=== PATIENT | male | born 1950 | race Caucasian/White ===

== ENCOUNTER 2017-10-04 03:54 | Inpatient (IN) | payer MEDICARE ==
[~2017-10-04] VITALS: Ht 180.3 cm; Wt 220.6 kg
--- OUTSIDE RECORDS SUMMARY | ~2017-10-04 | XMS | Clinical Summary ---
Demographics + + + | Address | [address] | | | [place] [address] | + + + | Home Phone | | + + + | Preferred Language | Unknown | + + + | Marital Status | | + + + | Yazidism Affiliation | ADV | + + + | Race | White | + + + | Ethnic Group | Not or | + + + Author + + + | Author | [facility] | + + + | Organization | [facility] | + + + | Address | Unknown | + + + | Phone | Unavailable | + + + Support +------+ +---------+ + | Name | Relationship | Address | Phone | +------+ +---------+ + ECON | Unknown | | +------+ +---------+ + Care Team Providers + +------+ + | Care Complaint Manager Name | Role | Phone | + +------+ + PP | Unavailable | + +------+ + Source Comments HERO is fully live on both [facility] Ambulatory and [facility] InPatient.[facility] Allergies No Known Allergies Current Medications Not [...]
--- OUTSIDE RECORDS SUMMARY | 2017-10-04 03:57 | XMS | Clinical Summary ---
Demographics + + + | Address | [address] | | | [place] [address] | + + + | Home Phone | | + + + | Preferred Language | Unknown | + + + | Marital Status | | + + + | Oriental Orthodox Affiliation | ADV | + + + | Race | White | + + + | Ethnic Group | Not or | + + + Author + + + | Author | [facility] | + + + | Organization | [facility] | + + + | Address | Unknown | + + + | Phone | Unavailable | + + + Support +------+ +---------+ + | Name | Relationship | Address | Phone | +------+ +---------+ + ECON | Unknown | | +------+ +---------+ + Care Team Providers + +------+ + | Care Scientific Research Associate Name | Role | Phone | + +------+ + PP | Unavailable | + +------+ + Source Comments HERO is fully live on both [facility] and [facility] InPatient.[facility] Allergies No Known Allergies Current Medications Not on file Active Problems Not on file Social History + +-------+ +--------+------+ | Tobacco Use | Types | Packs/Day | Years | Date | | | | | Used | | + +-------+ +--------+------+ | Never Assessed | | | | | + +-------+ +--------+------+ + + + | Sex Assigned at | Date Recorded | | | | + + + | Not on file | | + + + Plan of Treatment + + + + + | Health Maintenance | Due Date | Last Done | Comments | + + + + + | INFLUENZA VACCINE | | | | | (FLU SHOT) | 7 | | | + + + + + Results Not on filefrom Last 3 Months"
--- OUTSIDE RECORDS SUMMARY | 2017-10-04 03:57 | XMS | Clinical Summary ---
Demographics + + + | Address | [address] | | | [place] [address] | + + + | Home Phone | | + + + | Preferred Language | Unknown | + + + | Marital Status | | + + + | Quaker Affiliation | ADV | + + + | Race | White | + + + | Ethnic Group | Not or | + + + Author + + + | Author | [facility] | + + + | Organization | [facility] | + + + | Address | Unknown | + + + | Phone | Unavailable | + + + Support +------+ +---------+ + | Name | Relationship | Address | Phone | +------+ +---------+ + ECON | Unknown | | +------+ +---------+ + Care Team Providers + +------+ + | Care Manager Administration Name | Role | Phone | + +------+ + PP | Unavailable | + +------+ + Source Comments HERO is fully live on both [facility] Amb[facility] and [facility] InPatient.[facility] Allergies No Known Allergies Current Medications Not [...]
--- NOTE | 2017-10-04 06:55 | NUR ---
HANDOFF REPORT RECEIVED FROM GAS LEAK INSPECTOR CHARGE NURSE. PT ARRIVED TO FLOOR, IV FLUIDS INFUSING. PT REQUESTING TO STAY SITTING IN CHAIR.
--- NOTE | 2017-10-04 08:20 | NUR ---
ADMISSION INTAKE COMPLETED. PT ON ROOM AIR, DENIES SOB, WEARS BIPAP FOR SLEEP AT HOME, DSICUSSED WITH PT. PT DENIES NAUSEA. PT RATING PAIN 1/10 TO ABD. IV FLUIDS INFUSING NS BOLUS FOR ED, IV ABX COMPLETED. PT LUNG SOUNDS CLEAR. BOWEL TONES ACTIVE. PT WITH 1+ EDEMA TO BLE, CMS INTACT. PT NPO FOR PROCEDURE. DISCUSSED PLAN OF CARW WITH PT. PT DENIES QUESTIONS AT THIS TIME.
--- NOTE | 2017-10-04 10:00 | NUR ---
PT HAS HAD FULL BODY SURGICAL WIPE DOWN AND IS NOW JUST WAITING TO BE TAKEN TO SURGERY. PT DID NOT NEED ANYTHING ELSE AT THE MOMENT.
--- NOTE | 2017-10-04 10:25 | NUR ---
PT TO OR WITH DAYSURGERY RN. LR BOLUS INFUSING.
--- NOTE | 2017-10-04 14:30 | NUR ---
PT IS STILL IN SURGERY.
--- NOTE | 2017-10-04 16:25 | NUR ---
10/04/17 1625 Latoya Villatoro 1539-PATIENT ARRIVED TO PACU ON 12L MASK AWAKE YELLING I NEED TO PEE, I NEED TO GET UP. ARMS RIGID HAVING TO HOLD DOWN ARMS. WANTING TO GET OUT OF BED. DR. LEDEZMA AT BEDSIDE. RT CALLED TO BEDSIDE FOR CPAP/BIPAP PLACEMENT. ST. O2 SAT 82% AFTER CPAP PLACED 02 INCREASED TO 99-100% ORDER TO GIVE 3O MG TORADOL IVP. INCISION CDI 1548-SHAH CATHETER REMOVED BY MYESHA LAMAR MD ORDERED TO HAVE REMOVED. 50 ML'S URINE IN SHAH. 1600-PATIENT SQUEEZED RAHEEM DRAIN AND SEROUSANGUINOUS DRAINAGE ONTO BED AND EMPTIED 30 MLS. GOWN CHANGED AND PATIENT ORIENTED TO SITUATION. PATIENT MEDICATED WITH MORPHINE IVP. BREATHING TREATMENT BY RT 1611-IV TYLENOL BEING ADMINISTERED IV. 1622-RT REMAINS AT BEDSIDE TODD SAGASTUME AT BEDSIDE PATIENT REPOSITIONED WITH HOB ELEVATED HOVER MAT. PATIENT ON CPAP. URINAL TO PENIS. PATIENT REPORTS PAIN 03/29 1
--- NOTE | 2017-10-04 17:14 | NUR ---
PT HAS JUST RETURNED FROM SURGERY, PT IS RESTING SAFELY IN THE BED WITH CALL LIGHT IN REACH. FIRST SET OF POST OP VITALS TAKEN.
--- NOTE | 2017-10-04 17:23 | NUR ---
PT RECEIVED FROM PACU, BEDSIDE REPORT OBTAINED FROM NATURAL DEVELOPER. PT ON BIPAP, MEDIA MARKETING DIRECTOR AT BEDSIDE, PT LUNG SOUNDS CLEAR, TOLERATING BIPAP WELL, UNLABORED AND EVEN BREATHING. PT DENIES NAUSEA. PT DENIES PAIN, STATES "I'VE HAD MORPHINE, I AM COMFORTABLE." PT WITH INCISION TO RIGHT LOWER ABS, DRESSING INTACT, WITHOUT DRAINAGE, RAHEEM DRAIN WITH SEROSANGUINOUS FLUID. PT WITH 2+EDEMA TO BLE, CMS INTACT. IV FLUIDS INFUSING. PT DENIES OTHER NEEDS AT THIS TIME, DISCUSSED PLAN OF CARE AND EDUCATED ON BRACING FOR DEEP BREATHING AND COUGHING.
--- NOTE | 2017-10-04 17:43 | NUR ---
PT WITHOUT S/S OF RESPIRATORY DISTRESS, TOLERATING CPAP WELL, DISCUSSED WITH RT WEANING TO NASAL CANNULA, RT AGREES ATTEMPT. DISCUSSED WITH PT, AGREES TO TRY NASAL CANNULA, PLACED ON 4L NC, RR 18, UNLABORED. 02 SATS 93% ON 4L, BP 159/67, PULSE 98. PT PROVIDED WITH SMALL SIPS OF WATER. RAHEEM DRAIN EMPTIED FOR 25 ML. PT ATTEMPTED TO VOID, DIFFICULTY URINATED, ABLE TO VOID SMALL AMOUNT, MISSED URINAL.
--- NOTE | 2017-10-04 18:02 | NUR ---
PT IS RESTING IN BED SAFELY WITH CALL LIGHT IN REACH. PT'S SECOND SET OF POST OP VITLAS WERE DONE AND CHARTED BY NURSE GREER, WELL I&O'S. PT DID NOT NEED ANYTHING AT THE MOMENT
--- NOTE | 2017-10-04 18:29 | NUR ---
PT HAD OPEN APPENDECTOMY. PT ON BIPAP UPON ARRIVE, WEANED TO 4L NC, CONTINOUS PULSE OX. PT TOELRATING SIPS OF WATER, CLEAR LIQUID DIET, BOWEL TONES ACTIVE, DENIES NAUSEA. PT HAS NOT REQUIRED PAIN MEDICATION SINCE ARRIVE TO FLOOR, RECEIVED 6MG IV MORPHINE IN PACU. PT WITH RLQ DRESSING CDI, RAHEEM DRAIN WITH SEROSANGUINOUS FLUID. PT HAS VOIDED A SMALL AMOUNT OF URINE, UNABLE TO MEASURE. SCDS IN PLACE. IV FLUIDS D5LR AT 85 ML/HR.
--- NOTE | 2017-10-04 19:00 | NUR ---
BEDSIDE REPORT RECEIVED FROM WILLARD GREER. PT LYING IN BED, DROWSY, AWAKENS WITH RNS ENTERING ROOM. CPAP ON. SPO2 91%, HR 93. DRESSING CDI, RAHEEM DRAIN HAS SMALL AMOUNT SANGUINOUS DRAINAGE. IVF INFUSING WNL. CALL LIGHT IN REACH, PT HAS NO REQUESTS AT THIS TIME.
--- NOTE | 2017-10-04 20:35 | NUR ---
PT ASSESSMENT COMPLETE AT THIS TIME, PT ON 3.5 L OXYGEN BY RT ANANDA SALAZAR IN ROOM TO SWITCH PT FROM CPAP, SPO2 90%. PT GIVEN INCENTIVE SPIROMETER BY RN,INSTRUCTED ON USE, 1250 BEST EFFORT WITH 10 REPS. LUNGS CLEAR, DIMINISHED THROUGHOUT ALL LOBES, BOWEL TONES HYPOACTIVE. PT STATES PAIN IS 3/10 AT INCISION SITE, TOLERABLE. NO SIGNIFICANT EDEMA NOTED, CSM INTACT BILATERALLY UPPER AND LOWER EXTREMITIES. SCDS ON. RAHEEM DRAIN SANGUINOUS SMALL AMT, INCISION SITE CLEAN DRY AND INTACT WITH GAUZE. PT HAS CALL LIGHT, IVF INFUSING WNL RIGHT AC, FLUSHES WELL.
--- NOTE | 2017-10-04 22:49 | NUR ---
HELPED PT TO USE HIS URINAL. BEDSIDE TABLE AND CALL LIGHT IN REACH. HE NEEDS NOTHING ELSE AT THIS TIME.
--- NOTE | 2017-10-05 00:22 | NUR ---
PT SLEEPING AT THIS TIME, CPAP ON. VISIBLE CHEST RISE. LIGHTS OFF IN ROOM.
--- NOTE | 2017-10-05 03:29 | NUR ---
ASSISSTED PT TO DANGLE AT SIDE OF BED WITH 3PA. MORNING ASSESSMENT COMPLETE, LUNGS CLEAR THROUGHOUT ALL LOBES. INCISION SITE CLEAN DRY AND INTACT. RAHEEM DRAIN CONTINUES TO DRAIN SMALL AMOUNTS OF SANGUINOUS FLUID. PT HAS SCDS ON, IVF INFUSING. CPAP ON AT THIS TIME. CALL LIGHT IN REACH.
--- NOTE | 2017-10-05 04:22 | NUR ---
RT IN PT ROOM ASSISTING WITH CPAP MACHINE.
--- NOTE | 2017-10-05 06:26 | NUR ---
EMPTIED RAHEEM DRAIN, 30 ML SEROSANGUINOUS DRAINAGE. PT SLEEPING, CPAP ON, SCDS ON, AWAKENS TO RN ENTERING ROOM. REQUESTED TEMPERTATURE TURNED UP. IVF INFUSING AT 85 ML/HR. NO ADDITIONAL REQUESTS AT THIS TIME. CALL LIGHT IN REACH.
--- NOTE | 2017-10-05 06:29 | NUR ---
PT WAS ABLE TO DANGLE AT SIDE OF BED THIS SHIFT WITH 3PA, PT GUARDED WITH ABD INCISION. PT REFUSES PAIN MEDICATION THROUGHOUT SHIFT. RAHEEM DRAIN DRAINING SEROSANGUINOUS FLUIDS, EMPTIED X 2 FOR 70 ML TOTAL FLUID. PT HAS HAD SUFFICIENT URINE OUTPUT THIS SHIFT. USING INCENTIVE SPIROMETER APPROPRIATELY. DRESSING CLEAN DRY AND INTACT THROUGHOUT SHIFT. CONTINUES TO RECEIVE IVF WNL.
--- NOTE | 2017-10-05 07:00 | NUR ---
BEDSIDE HANDOFF REPORT RECEIVED FROM MATERIAL CONTROL SUPERVISOR RN. PT SLEEPING, CPAP ON. IV FLUIDS INFUSING D5LR AT 85 ML/HR. PT LEFT UNDISTURBED.
--- NOTE | 2017-10-05 07:09 | EKG ---
[facility] [address] [place] [address] Signed Sinus tachycardia Low voltage QRS Borderline ECG No previous ECGs available Confirmed by KENYATTA ZELAYA MD ([id number]) on 10/05/2017 7:09:08 AM Electronically Signed By: KENYATTA ZELAYA MD 10/05/17 0709 PATIENT NAME: FABIOLA SIMPSON PEGGY Electrocardiogram DATE OF : 52 PHYSICIAN: KENYATTA ZELAYA MD REPORT #: [id number] REPORT IS CONFIDENTIAL AND NOT TO BE RELEASED WITHOUT AUTHORIZATION
--- NOTE | 2017-10-05 08:53 | NUR ---
ASSISTED NURSE GREER TO HELP PT OUT OF BED. PT WAS ABLE TO WALK TO BATHROOM, VOIDED, AND THEN WALKED TO CHAIR. PT IS NOW SITTING UP IN CHAIR EATING BREAKFAST AND CALL LIGHT IN REACH. LINENS WERE CHANGED.
--- NOTE | 2017-10-05 08:54 | NUR ---
PT RESTING IN BED, ON CPAP, SWITCHED TO 3L NC. LUNG SOUNDS CLEAR WITH DIMINISHED BASES. BOWEL TONES ACTIVE. PT RATING NIXON 3/10, DISCUSSED PAIN MANAGEMENT, DECLINING MORPHINE AT THIS TIME, AGREEABLE TO KETORALAC, GIVEN. PT WITH 1+EDEMA TO BLE, PULSES PALPABLE, CMS INTACT. PT DENIES NAUSEA. PT ASSISTED UP TO BATHROOM AND THEN TO CHAIR, ABLE TO VOID CONCENTRATED URINE, ENCOURAGED INCREASED PO INTAKE TOLERATED. D5LR INFUSING AT 85 ML/HR. PT PROVIDED WITH CLEAR LIQUID TRAY. PT DENIES OTHER NEEDS AT THIS TIME. DISCUSSED PLAN OF CARE.
--- NOTE | 2017-10-05 10:02 | NUR ---
PT IS VISITING WITH LACEY SOTO RN. PT VS AND I&O'S TAKEN AND DOCUMENTED. PT STATES HE WAS A LITTLE NAUSEOUS DURING BREAKFAST. STATES HE HAS NO OTHER NEEDS AT THIS TIME. INFORMED PT I WILL NOTIFY HIS RN ABOUT THE NAUSEA. PT IS AWARE TO CALL IF HE NEEDS ANYTHING. CALL LIGHT IS IN REACH.
--- NOTE | 2017-10-05 10:52 | NUR ---
PT SALINE LOCKED FOR WALK IN BOOKER. NURSE AIDE ASSISTING PT WITH WALK, SBA WITH WALKER.
--- NOTE | 2017-10-05 12:00 | NUR ---
SPOKE WITH PATIENT AND IN ROOM. DISCUSSED POST OP COURSE. PATIENT STATES HE'D LIKE TO HAVE A WALKER DUE TO HIS "KNEE ISSUE" AND RECOVERY WEAKNESS. DISCUSSED THAT HE WILL NEED RX FROM DOCTOR IF HE WANTS IT TO GO THROUGH INSURANCE. THEY STATE THAT HE WOULD LIKE TO CHANGE PCP. WE SPOKE ABOUT POSSIBLE CLINICS IN [place], THEY WILL TRY DR HERNANDEZ WHERE GOES. HAS THE NUMBER AND WILL CALL THEM. THEY UNDERSTAND THEY WILL NEED TO HAVE RECORDS CHANGED OVER AND CAN DO THAT THROUGH THE OFFICES. NO OTHER CONCERNS AT THIS TIME. PATIENT STATES NO BARRIERS TO RETURNING HOME AT THIS TIME.
--- NOTE | 2017-10-05 13:34 | NUR ---
PT WAS WALKED TO THE PHYSICAL THERAPY ROOM AND BACK TO HIS ROOM. PT IS NOW SITTING UP IN CHAIR WITH CALL LIGHT IN REACH. PT ASKED FOR MORE ICE WATER
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
--- NOTE | 2017-10-05 13:35 | OR ---
[facility] [address], [place] [address] Signed DATE OF OPERATION: 10/04/2017 SURGEON: Sruthi Ledezma MD PREOPERATIVE DIAGNOSES: 1. 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 2. Acute abdomen with peritonitis and complex appendicitis. POSTOPERATIVE DIAGNOSES: 1. 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 2. Acute abdomen with peritonitis and complex appendicitis. 3. Intraabdominal/retroperitoneal abscess associated with perforated appendicitis. 4. Peridiverticular inflammation of rectosigmoid. PROCEDURES PERFORMED: 1. Open drainage of abdominal/retroperitoneal abscess. 2. Open appendectomy, prolonged, complicated and difficult. 3. Partial omentectomy. 4. Placement of drain. ANESTHESIA: General endotracheal, Alba Dudley CRNA. DRAINS: 7 mm Martinez. INDICATION: This morbidly obese 480 pounds white man has had over a week of increasing abdominal pain culminating in severe pain, evaluated by Dr. Pulido in the emergency room late last night and early this morning. A CT scan was performed, which showed a marked inflammatory process in the right lower quadrant. The patient has sleep apnea and hypertension and is quite impressively obese, particularly in the abdomen. He has been fluid resuscitated, given intravenous antibiotics, and is taken to operation at this time for presumed severe appendicitis. He understands as does his the risks of bleeding, infection, cardiopulmonary complications, need for other indicated procedures and so on. Consideration had been made for laparoscopic approach, but given his obesity, the extent of inflammation is deemed more appropriate to simply proceed to open operation under the circumstances. FINDINGS: Electronically Signed By: SRUTHI LEDEZMA MD 10/05/17 1335 PATIENT NAME: FABIOLA SIMPSON OPERATIVE REPORT DATE OF : 52 PHYSICIAN: SRUTHI LEDEZMA MD REPORT #: [id number] REPORT IS CONFIDENTIAL AND NOT TO BE RELEASED WITHOUT AUTHORIZATION [facility] [address], [place] [address] Signed Marked inflammatory change of omentum and soft tissue in the right lower quadrant was noted. Ultimately, appendix was found to be the cause of the problem with marked inflammation and perforation of the distal portion. An abscess, which was relatively well formed, was noted too in the retroperitoneal area, which was well drained. Complete appendectomy and partial omentectomy were then accomplished. The operation was prolonged, complicated, and difficult due to his significant obesity and advanced inflammatory changes. A drain was placed. DESCRIPTION OF PROCEDURE: The patient was brought to the operating room and given a general endotracheal anesthetic without problem. Preoperative antibiotic clindamycin and Flagyl had been given. Sequential compression device stockings were used and heparin subcutaneously administered. After satisfactory anesthesia, a Najera catheter was placed. The abdomen was prepared with chlorhexidine solution and draped sterilely. Abdominal wall tape retractors were used to elevate the abdominal pannus cephalad. The anterior superior iliac spine was palpated and a transverse incision was made in the area corresponding to McBurney point. Dissection was carried through the thick abdominal wall pannus ultimately allowing for McBurney type incision in a Gridiron fashion. Each layer was accompanied by about 0.5 inch of fat a testimony to a significant obesity. Ultimately, the peritoneum was incised and the abdomen entered. The location of the incision was quite optimal, was directly over the thickened dense inflammatory process including omentum. Inflammatory fluid was noted. It was subsequently cultured. Digital examination was undertaken showing a rock-hard mass like change in this area. With various manipulations including the use of a variety of retractors including Jamey retractors, sweetheart retractors, Malleable and so forth, ultimately the cecum could be identified and the base of the appendix noted. Base of the appendix was followed to a dense inflammatory cicatrix measuring at least 60 cm and customer retention representative of marked inflammatory changes of omentum. The sigmoid colon was ultimately identified and inflammation and hypertrophy of sigmoidal appendices epiploica was also noted, which had walled off the process. Most likely considered that this represented perforated appendicitis. Various manipulations medially and deeply, ultimately an abscess cavity was encountered showing thick purulent material, this was Gram stained and cultured as well. Further manipulations were undertaken ultimately delivering the inflammatory cicatrix and portion of omentum to the wound more fully. Sequential application of hemostats to the portion of omentum which could not be from the perforated appendix was undertaken freeing it more fully. An Endo RAZIA stapling device was used to transect the base of the appendix, flushed with the cecum, and the specimen was passed off the table. Photographs were taken. Irrigation was undertaken and using sucker dissection, it was clear that the tip of the appendix was extending deeply and medially, which had distracted from the main portion of the appendix, most likely due to autolysis. This area was dissected free and excised as well. An area of marked inflammatory change and what appeared to be a possible sigmoid diverticulum was also in Electronically Signed By: SRUTHI LEDEZMA MD 10/05/17 1336 PATIENT NAME: FABIOLA SIMPSON OPERATIVE REPORT DATE OF : 52 PHYSICIAN: SRUTHI LEDEZMA MD REPORT #: [id number] REPORT IS CONFIDENTIAL AND NOT TO BE RELEASED WITHOUT AUTHORIZATION [facility] [address] [place], [place] [address] Signed a tubular configuration. Although I believe the problem was actually perforated appendicitis, this diverticulum was excised with an Endo RAZIA stapling device in continuity with its accompanying appendix epiploica. Irrigation was undertaken until clear and hemostasis was assured. Through a separate stab incision cephalad to the incision, a 7 mm flat Martinez drain was passed into the abdominal cavity, secured the skin with a nylon suture, and manipulated into the cavity for which the abscess was drained. Irrigation was undertaken more fully and remaining viable omentum applied over the area. The wound was closed in layers of running 2-0 PDS on the peritoneal layer and the fascial layer was reapproximated with interrupted 2-0 PDS. Not mentioned previously was extension of the muscular fascial layers medially to allow for more room in operation. Once all layers were completely secured, irrigation was undertaken in the thick abdominal wall pannus layer. The skin was closed with some laxity with interrupted 2-0 Vicryl, three such sutures were applied. A Mepilex silver sponge dressing was applied as was an Opsite. This pannus was allowed to retreat to a natural position and the incision was not in a position of likely excoriation and was well positioned. The patient was ultimately extubated. He had a fair amount of flailing and issues related to his disorientation from anesthesia, ultimately improved with appropriate medication, better elevation of the head and so. The operation was prolonged, complicated, and difficult lasting four times longer than what would be normal, was accomplished safely. Blood loss was estimated at 50 mL maximum. MD JAREK Ford/MARIA DEL CARMEN /[id number] cc: DO Humble Lizarraga MD Electronically Signed By: SRUTHI LEDEZMA MD 10/05/17 1335 PATIENT NAME: CALVINFABIOLA PEGGY OPERATIVE REPORT DATE OF : 52 PHYSICIAN: SRUTHI LEDEZMA MD REPORT #: [id number] REPORT IS CONFIDENTIAL AND NOT TO BE RELEASED WITHOUT AUTHORIZATION
--- NOTE | 2017-10-05 13:45 | NUR ---
PT RESTING IN CHAIR, AT BEDSIDE. PT DENIES NEED FOR PAIN MEDICATION, HESITANT TO TAKE NARCOTICS. PT ON 3L NC O2 SAT 91%, LUNG SOUNDS CLEAR. PT DENIES NAUSEA, BOWEL TONES ACTIVE, PT REPORT OF PASSING GAS. IV FLUIDS CONTINUE TO INFUSE AT 85 ML/HR, IV ABX INFUSING. PT DENIES OTHER NEEDS AT THIS TIME, REQUESTING TO WALK IN THE BOOKER LATER.
--- NOTE | 2017-10-05 15:00 | NUR ---
NOTIFIED BY NURSE AIDE THAT PT HAS COMPLAINT OF HEART RACING. VSS. PT HR UP TO 110'S PER FAMILY, UPON RRIVAL PT HR WAS 100'S AND BEGINNING TO DECREASE. PT O2 SATS 92%. PT JUST RETURNING FROM WALK IN BOOKER. PT STATES HE WAS WALKING QUICKLY, DISCUSSED WITH PT TO WALK SLOWLY AND REMINDED THAT HE IS CONTINUING TO RECOVER FROM SURGERY AND WILL SLOWLY RETURN TO NORMAL ACTIVTY. PT STATES UNDERSTANDING. PT COMPLAINT OF LOWER BACK PAIN, REPOSITIONED IN CHAIR. PT HR RETURNING TO 95-97 DURING CONVERSATION. PT DENIES OTHER NEEDS AT THIS TIME. FAMILY AT BEDSIDE.
--- NOTE | 2017-10-05 16:00 | NUR ---
PT REPOSITIONED IN BED. PT DENIES OTHER NEEDS AT THIS TIME.
--- NOTE | 2017-10-05 16:45 | NUR ---
PT REQUESTIGN TO WEAR CPAP AND REST IN BED. PT ASSITED TO PLACE CPAP ON. PT DNIES OTHER NEEDS AT THIS TIME.
--- NOTE | 2017-10-05 17:27 | NUR ---
PT IS RELAXING IN BED AND HAS NO NEEDS AT THIS TIME. PT INFORMED TO CALL IF HE NEEDS ANYTHING. CALL LIGHT IS IN REACH.
--- NOTE | 2017-10-05 18:02 | NUR ---
PT ON 3L NC, CPAP WHEN SLEEPING, LUNG SOUNDS CLEAR. PT WITH ACTIVE BOWEL TONES, PASSING FALTUS, CLEAR LIQUID ADVANCE TOLERATED. PT UP WITH 1PA, AMBULATED IN BOOKER X3, SAT IN CHAIR FOR MOST OF THE DAY. RAHEEM DRAIN AND DRESSING TO RLQ. 2+ EDEMA TO BLE, LEGS ELEVATED, SCDS. PAIN WELL CONTROLLED WITH KETORALAC, HESITANT TO TAKE NARCOTICS. VOIDING QS.
--- NOTE | 2017-10-05 19:00 | NUR ---
BEDSIDE REPORT RECEIVED FROM WILLARD GREER, PT AWAKE, IVF INFSUING WNL. PT ON 3L OXYGEN BY NC, 93% SPO2. ASSISTED PT WITH SBA FROM BED TO CHAIR. PT TOLERATED WELL, W MINIMAL ASSIST W SITTING UP. PT'S IN ROOM. PT DENIES PAIN, DOES QUESTION WHICH MEDS AVAILABLE. EDUCATION PROVIDED BY RNS. PT REFUSES PRN PAIN MEDICATION AT THIS TIME. CALL LIGHT AND PERSONAL SUPPLIES IN REACH.
--- NOTE | 2017-10-05 20:33 | NUR ---
charge nurse rounding rounds. pt up in chair, c/o abd pain 11/27. medicated with 1 percocet. family in room
--- NOTE | 2017-10-05 21:35 | NUR ---
IN PT ROOM TO CHECK ON PT, PT SITTING UP IN CHAIR, FEELS "FLOATY". STATES "WISH I HAD TAKEN THAT SOONER" IN REGARDS TO PAIN MEDICATION, DENIES PAIN. IN ROOM VISITING. PT STATES HE WOULD LIKE TO RETURN TO BED IN 15-20 MINS. PLAN TO DO SO WITH TRAUMA COUNSELLOR. CALL LIGHT IN REACH, IVF INFUSING.
--- NOTE | 2017-10-05 22:10 | NUR ---
PT ASSESSMENT COMPLETE. PT DENIES PAIN AT THIS TIME. DRESSING HAS SHADOWING AT RAHEEM INSERTION SITE. RAHEEM DRAIN DRAINING SEROSANGUINOUS FLUID, SMALL AMT. BOWEL TONES ACTIVE X 4. PTS LUNGS CLEAR, DIMINISHED IN BASES. PT IS ON CPAP AT THIS TIME. IV SITE WNL, FLUSHES WELL, IV ANTIBIOTICS INFUSING AT THIS TIME. PT HAS NO ADDITIONAL REQUESTS, LIGHTS OFF IN ROOM, SCDS ON. CALL LIGHT IN REACH.
--- NOTE | 2017-10-05 23:00 | NUR ---
IN PT ROOM, CLINDAMYACIN INFUSION COMPLETE. FLAGYL NOW INFUSING WNL. PT AWAKENS TO RN ENTERING ROOM. CPAP ON. CALL LIGHT WITH PT.
--- NOTE | 2017-10-06 01:30 | NUR ---
VITALS DONE AND CHARTED. PT NEEDS NOTHING ELSE AT THIS TIME. BEDSIDE TABLE AND CALL LIGHT WITHIN REACH. WAS IN THE ROOM WITH HIM WHEN I LEFT.
--- NOTE | 2017-10-06 01:36 | NUR ---
PT SLEEPING, EYES CLOSED, CPAP ON. LIGHTS OFF IN ROOM.
--- NOTE | 2017-10-06 03:28 | NUR ---
ANSWERED CALL LIGHT, PT AWAKE IN ROOM. STATES HE'S COLD. ADJUSTED TEMPERATURE IN ROOM, GAVE PT ADDITIONAL BLANKET. NO NEW DRAINAGE NOTED ON SURGICAL SITE ON GAUZE, MINIMAL SEROSANGUINOUS OUTPUT IN RAHEEM DRAIN. IVF INFUSING WNL. PT HAS CPAP ON, LUNGS CLEAR IN UPPER LOBES, CLEAR BUT DIMINISHED IN LOWER LOBES. BOWEL TONES ACTIVE. PT DENIES PAIN, STATES HE HAS SOME DISCOMFORT IN KNEES, DENIES ASSISTANCE WITH REPOSITIONING. CALL LIGHT IN REACH. SCDS ON.
--- NOTE | 2017-10-06 06:14 | NUR ---
IV FLAGYL INFUSING AT THIS TIME. PT SLEEPING, AWAKENS TO RN ENTERING ROOM. ON CPAP AT THIS TIME, SPO2 97%. PT DROWSY, BACK TO SLEEP AFTER MEDICATION ADMINISTRATION. IV INFUSING WNL. CALL LIGHT WITH PT.
--- NOTE | 2017-10-06 06:15 | NUR ---
PT UP TO CHAIR AT START OF SHIFT. TRANSFERRED WITH 1PA AND FWW. GATE STEADY. RECEIVED PRN PERCOCET X 1 FOR PAIN THIS SHIFT, EFFECTIVE FOR PAIN MGMT. PT HAS HAD CPAP ON THROUGHOUT SHIFT, SLEPT WELL. RAHEEM DRAINING MINIMAL OUTPUT SEROSANGUINOUS FLUID, INSERTION SITE HAS NO NEW DRAINAGE THROUGHOUT SHIFT. PT HAS USED CALL LIGHT APPROPRIATELY, CONTINUES TO RECEIVE IVF AND ANTIBIOTICS.
--- NOTE | 2017-10-06 07:00 | NUR ---
BEDSIDE HANDOFF REPORT RECEIVED FROM FIELD OPERATIONS TECHNICIAN RN. PT SLEEPING, LEFT UNDISTURBED.
--- NOTE | 2017-10-06 07:10 | NUR ---
VITALS DONE AND CHARTED.
--- NOTE | 2017-10-06 08:00 | NUR ---
PT SITTING IN CHAIR. PT O2 SATS 92% ON 3L NC, COMPLAINT OF DRY CONGESTED NASAL PASSAGES, HUMIDIFICATION TO OXYGEN AND SPOKE WITH RT TO ADD HUMIDIFICATION TO CPAP. PT RATING PAIN 3.5/10, DISCUSSED PAIN MANAGEMENT WITH PT, EDUCATED ON SIDE EFFECTS AND INDICATIONS FOR MEDICATIONS, PT REQUESTING TO TAKE TORADOL AT THIS TIME, PT REQUIRES REASSURANCE AND EDUCATION ABOUT PROCEDURE, HEALING AND MEDICATIONS. PT DENIES SOB OR CHEST PAIN. LUNG SOUNDS CLEAR WITH DIMINISHED BASES. BOWEL TONES ACTIVE, REPORT OF FLATUS THIS AM, TOLERATING FULL LIQUID DIET, DISCUSSED ADVANCING DIET TOLERATED. EDEMA TO BLE IMPROVED FROM YESTERDAY. RAHEEM DRAIN IN PLACE, SEROSANGUINOUS FLUID. DISCUSSED PLAN OF CARE FOR THE DAY. PT DENIES OTHER NEEDS AT THIS TIME.
--- NOTE | 2017-10-06 11:44 | NUR ---
PT WALKED TO [facility], VOIDED, WALKED OUT OF ROOM AND BACK TO BED, AND IS NOW RESTING SAFELY IN BED WITH CALL LIGHT IN REACH.
--- NOTE | 2017-10-06 13:45 | NUR ---
PT SITTING IN CHAIR. PT EATING LUNCH, STATES APPETITE IS IMPROVING, TOLERATING REGUALR DIET. PT 96% ON 3L NC, WENAED TO 2L, LUNG SOUNDS CLEAR WITH DIMINISHED BASES. PT RATING PAIN 3/10, DENIES NEED FOR PAIN MEDICATION. RAHEEM DRAIN IN PLACE, EMPTIED, SEROSANGUINOUS FLUID. IV FLUIDS INFUSING D5LR AT 85 ML/HR. PT DENIES OTHER NEEDS AT THIS TIME.
--- NOTE | 2017-10-06 17:15 | NUR ---
PT ASSISTED TO BATHROOM AND BACK TO BED. URINE COLOR IMPROVED TO YELLOW, DISCUSSED HYDRATION WITH PT. PT WEANED TO 1L NC. PT EATING DINNER. PT STATES PAIN TOLERABLE AT THIS TIME, DISCUSSED PAIN MANAGEMENT, PT VERBALIZED UNDERSTANDIGN TO CALL FOR PAIN MEDICATION WHEN NEEDED. FAMILY AT BEDSIDE. PT DENIES OTHER NEEDS AT THIS TIME.
--- NOTE | 2017-10-06 17:59 | NUR ---
PT WITH IMPROVEMENT TODAQY. WEANED TO 1L, LUNG SOUNDS CLEAR. PT TOLERATING REGULAR DIET, DENIES NAUSEA, BOWEL TONES ACTIVE. D5LR AT 85 ML/HR. SWITCHED TO PO ANTIBIOTICS. PT WALKING WITH SBA. RAHEEM DRAIN TO RLQ, SEROSANGUINOUS FLUID. DRESSING TO RLQ, MEPILEX AND OPSITE, CDI. PAIN WELL CONTROLLED WITH TORADOL THIS AM.
--- NOTE | 2017-10-06 20:33 | NUR ---
Pt up in chair, leg elevated, shivani intact, draining ss drainage. no c/o pain, coop with assessment
--- NOTE | 2017-10-06 22:05 | NUR ---
medicated with toradol 30mg iv c/o abd pain, pt in bed, shivani draining small amounts ss drainage
--- NOTE | 2017-10-06 22:14 | NUR ---
WILLARD SALDANA AND I ASSISTED PATIENT FROM BATHROOM TO BED. CALL LIGHT WITHIN REACH. SCDS ON.
--- NOTE | 2017-10-07 00:40 | NUR ---
AWAKE, CPAP IN PLACE, DENIES C/O PAIN AT THIS TIME
--- NOTE | 2017-10-07 01:06 | NUR ---
PT VOIDED 300CC DARK YELLOW URINE USING URINAL, NO C/O PAIN, CPAP BACK ON
--- NOTE | 2017-10-07 05:40 | NUR ---
PT CURRENTLY RESTING, EYES CLOSED. CPAP IN PLACE. ABD DRESSING INTACT, RAHEEM PATENT DRAINING SMALL AMOUNTS S/S DRAINAGE. IVF PATENT, PT WAS MEDICATED X1 WITH [id number] IV PER C/O ABD PAIN WITHY GOOD PAIN CONTROL. PT COOPERATIVE WITH ASSESSMENT. O2 1L N/C. PT USES 2 PERSON ASSIST AND FWW TO GET AROUND ROOM, TOLERATES FAIR. COOP WITH ASSESSMENTS
--- NOTE | 2017-10-07 06:55 | NUR ---
BEDSIDE HANDOFF REPORT RECEIVED FROM CHASER TAR RN. PT RESTING IN BED, O2 SATS 88-92%, ENCOURAGED DEEP BREATHING AND I/S. PT DENIES NEDS AT THIS TIME.
--- NOTE | 2017-10-07 09:20 | NUR ---
PT SITTING IN CHAIR. PT RATING PAIN 2/10, DENIES NEED FOR PAIN MEDICATION. P TON ROOM AIR 02 SATS 91-93%, LUNG SOUNDS CLEAR WITH DIMINIHSED BASES. BOWEL TONES ACTIVE, TOLERATING REGULAR DIET, PASSING FLATUS, HAS NOT HAD BM. DRESSING TO RLQ, CDI. RAHEEM DRAIN PRESNE TO RLQ, SEROUS FLUID IN BULB. EDEMA TO BLE, 1+, CMS INATCT, PULSES PALPABLE. PT ASKING QUESTIONS ABOUT POSSIBLE DISCHARGE, PT CONCERNED ABOUT HOW TO KEEP INCISION DRY AND CLEAN DUE TO LOCATION IN SKIN FOLD. PT DENIES OTHER NEEDS AT THIS TIME.
--- NOTE | 2017-10-07 09:36 | NUR ---
PT STATES HE WOULD LIKE TO WAIT UNTIL HE GETS HOME TO SHOWER. INFORMED PT TO LET ME KNOW IF HE CHANGES HIS MIND.
--- NOTE | 2017-10-07 12:45 | NUR ---
PT SITTING IN CHAIR. PT REQUESTING TO GET TO BED, ASSISTED. PTREQUESTING CPAP AND TO TAKE NAP. PT DENIES OTHER NEEDS AT THIS TIME
[2017-10-07] MEDS ORDERED: CIPROFLOXACIN250 MG PO (14:24)
[2017-10-07] MEDS ORDERED: FAMOTIDINE20 MG PO (14:25)
[2017-10-07] MEDS ORDERED: OXYCODON-ACETA1 EAC2 PO (14:25)
[2017-10-07] MEDS ORDERED: METRONIDAZOLE250 MG PO (14:25)
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
== END 2017-10-07 16:30 | disposition home or self-care (01) | DRG 338 ==
LOC: ED 03:54 → MS 06:26
PROVIDERS: ADMIT Surgery
PROC: 0W9H00Z Drainage of Retroperitoneum with Drainage Device, Open Approach (ICD-10-PCS; principal; 2017-10-04 11:00)
PROC: 0DTJ0ZZ Resection of Appendix, Open Approach (ICD-10-PCS; principal; 2017-10-04 11:00)
PROC: 0DBU0ZZ Excision of Omentum, Open Approach (ICD-10-PCS; principal; 2017-10-04 11:00)
DX: K35.2 Acute appendicitis with generalized peritonitis (principal); K68.19 Other retroperitoneal abscess; E66.2 Morbid (severe) obesity with alveolar hypoventilation; I10 Essential (primary) hypertension; K80.80 Other cholelithiasis without obstruction; Z88.0 Allergy status to penicillin
CPT/HCPCS: 00840; 74177; 80053; 81001; 83690; 85025; 87070; 87075; 87076; 87077; 87185; 87186; 87205; 88304; 88307; 93005; 93010; 94640; 94660; 94762; J0131; J0330; J1100; J1644; J1885; J2250; J2270; J2405; J2704; J3010; J3490; J7030; J7120; Q9967